=== PATIENT | male | born 1995 | race Caucasian/White ===

== ENCOUNTER 2024-02-19 22:34 | Emergency (ER) | payer MEDICAID ==
[~2024-02-19] VITALS: Ht 175.3 cm; Wt 65.0 kg
[2024-02-19 22:46] VITALS: BP 137/92; PULSE 77; RESP 18; TEMP 97.8; O2SAT 100
[2024-02-20] MEDS: DIPHENHYDRAMINE 50MG/ML VIAL IM ONE (00:56)
[2024-02-20] MEDS: DEXAMETHASONE 4MG/ML 1ML VIAL IM ONE (00:57)
[2024-02-20] MEDS ORDERED: SULF1TAB48 MT (01:31)
[2024-02-20] MEDS ORDERED: MED4 MT (01:31)
[2024-02-20] MEDS ORDERED: DIPH25TA26 MT (01:31)
== END 2024-02-20 01:39 | disposition home or self-care (01) ==
LOC: ER 22:34
DX: L50.9 Urticaria, unspecified (principal)
CPT/HCPCS: 99284; 96372; J1100; J1200